=== PATIENT | male | born 1935 | race Two or more races ===

== ENCOUNTER → 2019-05-10 | Outpatient (CLI) | payer MEDICARE, MEDICAID ==
[~2019-05-10] MED LIST: AMLO-150 PO; ASPI-515 PO; ASPI81TA45 PO; ATOR-2 PO; BENA5TAB3 PO; CARV25TA12 PO; CLOP75TA PO; CYCL5TAB PO; DOXA2TAB9 PO; DOXY25TA22 PO; GABA300C10 PO; GUAI100L11 PO; HYDR-3240 PO; INSU100V13 SC; INSU100V5 SQ-INSULIN; INSU100V8 SQ; IRON PO; LOSA50TA14 PO; LOSA50TA2 PO; LOVA10TA PO; METO5VIA30 PO; ONDA4VIA60 PO; PANT40VI PO; SILV25CR30 TP; TRAM-47 PO; TRAM100T13 PO; VITAMIN D
== END | disposition home or self-care (01) ==
LOC: CFH 07:59
PROVIDERS: ATTEND Registered Nurse
DX: I08.0 Rheumatic disorders of both mitral and aortic valves (principal)
CPT/HCPCS: 93306

== ENCOUNTER 2019-09-19 13:49 | Emergency (ER) | payer MEDICARE, MEDICAID ==
[~2019-09-19] VITALS: Ht 162.6 cm; Wt 54.0 kg
[2019-09-19 15:03] VITALS: BP 124/74
== END 2019-09-19 15:05 | disposition home or self-care (01) ==
LOC: ED 15:00
DX: L03.313 Cellulitis of chest wall (principal); R94.31 Abnormal electrocardiogram [ECG] [EKG]; I11.0 Hypertensive heart disease with heart failure; I50.9 Heart failure, unspecified; I25.2 Old myocardial infarction; E11.9 Type 2 diabetes mellitus without complications; Z85.038 Personal history of other malignant neoplasm of large intestine
CPT/HCPCS: 93005; 99283

== ENCOUNTER 2020-01-04 11:46 | Observation (INO) | payer MEDICARE, MEDICAID ==
[~2020-01-04] VITALS: Ht 162.6 cm; Wt 65.5 kg
[2020-01-04] MEDS ORDERED: SODIUM CHLORIDE 0.9% 1,000ML IVBOLUS ONE (12:30)
[2020-01-04] MEDS ORDERED: ONDANSETRON 2MG/ML, 2ML IVPush ONE (12:30)
[2020-01-04] MEDS ORDERED: SODIUM CHLORIDE FLUSH 10ML SYR IVF ONE (12:30)
[2020-01-04] MEDS ORDERED: ONDANSETRON 2MG/ML, 2ML ONE (12:43)
--- NOTE | 2020-01-04 12:51 | NUR ---
PT MEDICATED PER MAR.
[2020-01-04 12:53] LABS: BASOPHILS % (AUTO) 1 % (0-1); EOSINOPHILS % (AUTO) 1 % (1-7); LYMPHOCYTES % (AUTO) 10 % (22-44); MEAN CORPUSCULAR HEMOGLOBIN 33.8 pg (27.5-34.5); MEAN PLATELET VOLUME 7.3 fL (7.4-10.4); MONOCYTES % (AUTO) 5 % (2-9); NEUTROPHILS % (AUTO) 83 % (42-75); PLATELET COUNT 269 x10^3/uL (130-400); RED BLOOD COUNT 3.24 x10^6/uL (4.38-5.82); RED CELL DISTRIBUTION WIDTH 16.1 % (9.4-14.8)
[2020-01-04 12:55] LABS: ALANINE AMINOTRANSFERASE 13 U/L (12-78); ALBUMIN 3.8 g/dL (3.4-5.0); ANION GAP 5 mmol/L (5-15); CALCIUM 8.4 mg/dL (8.5-10.1); CHLORIDE 111 mmol/L (98-107)
[2020-01-04 12:57] LABS: ALKALINE PHOSPHATASE 67 U/L (45-117); BILIRUBIN,TOTAL 0.7 mg/dL (0.2-1.0); CREATININE 1.13 mg/dL (0.7-1.3); TOTAL PROTEIN 6.5 g/dL (6.4-8.2)
--- NOTE | 2020-01-04 12:58 | NUR ---
BREAK RN: PT RESTING IN ROOM. LIGHTS TURNED DOWN FOR COMFORT. VS STABLE. NO ACUTE DISTRESS NOTED. CALL LIGHT IN PLACE. WILL CONTINUE TO MONITOR WHILE PRIMARY RN IS ON BREAK.
[2020-01-04 13:45] LABS: MD SCAN
[2020-01-04] MEDS ORDERED: GADOTERATE 7.5 MMOL/15 ML VIAL ONE (14:36)
[2020-01-04] MEDS ORDERED: ATOR40TA PO (16:53)
[2020-01-04] MEDS ORDERED: DOXA2TAB9 PO (16:54)
[2020-01-04] MEDS ORDERED: APIX2.5T PO (16:54)
[2020-01-04] MEDS ORDERED: GABA-826 PO (16:57)
[2020-01-04] MEDS ORDERED: MELA3TAB31 PO (16:58)
[2020-01-04] MEDS ORDERED: METF850T10 PO (16:59)
[2020-01-04] MEDS ORDERED: PSYL284P7 PO (17:00)
[2020-01-04] MEDS ORDERED: VERA240C2 PO (17:01)
[2020-01-04] MEDS ORDERED: TORS5TAB4 PO (17:01)
[2020-01-04] MEDS ORDERED: CYAN1TAB29 PO (17:02)
[2020-01-04] MEDS ORDERED: ASCO500T8 PO (17:03)
[2020-01-04] MEDS ORDERED: CHOL20008 PO (17:04)
[2020-01-04] MEDS ORDERED: METF500T17 PO (17:05)
[2020-01-04] MEDS ORDERED: ACET-1600 PO (17:06)
--- NOTE | 2020-01-04 17:06 | NUR ---
MED REC COMPLETED. HOSPITAL BED ORDERED FOR COMFORT.
[2020-01-04] MEDS ORDERED: ENALAPRILAT 1.25 MG/ML, 2ML IVPush PRN (17:30)
[2020-01-04] MEDS ORDERED: ONDANSETRON 2MG/ML, 2ML IVPush PRN (17:30)
[2020-01-04] MEDS ORDERED: ACETAMINOPHEN 325 MG TABLET PO PRN (17:30)
--- NOTE | 2020-01-04 18:03 | NUR ---
PHARMACY REQUEST SENT FOR COREG.
[2020-01-04] MEDS: CARVEDILOL 25 MG TABLET PO SCH (18:30)
--- NOTE | 2020-01-04 18:40 | NUR ---
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 ORTHOSTATIC VITALS DONE. PT HAD NO C/O DIZZINESS BUT SYSTOLIC BP DROPPED 28 POINTS FROM SITTING TO STANDING.
[2020-01-04 19:02] LABS: MICROSCOPIC AUTO
[2020-01-04] MEDS ORDERED: GABAPENTIN 300 MG CAPSULE ONE (20:17)
[2020-01-04] MEDS ORDERED: ATORVASTATIN 40 MG TABLET ONE (20:17)
[2020-01-04] MEDS ORDERED: APIXABAN 5 MG TABLET ONE (20:17)
[2020-01-04] MEDS ORDERED: metFORMIN 500 MG TABLET ONE (20:17)
[2020-01-04] MEDS: TORSEMIDE MC SCH (20:41)
[2020-01-04] MEDS ORDERED: GABAPENTIN 300 MG CAPSULE PO SCH (21:00)
[2020-01-04] MEDS ORDERED: MELATONIN 3 MG TABLET PO SCH (21:00)
[2020-01-04] MEDS ORDERED: ATORVASTATIN 40 MG TABLET PO SCH (21:00)
[2020-01-04] MEDS ORDERED: DOXAZOSIN 2MG TABLET PO SCH (21:00)
[2020-01-04] MEDS: metFORMIN 500 MG TABLET PO SCH (21:03)
[2020-01-04] MEDS: APIXABAN 2.5 MG TABLET PO SCH (21:04)
[2020-01-04 21:30] VITALS: BP 125/40
[2020-01-05 01:06] VITALS: BP 142/52
[2020-01-05] MEDS: TORSEMIDE MC SCH (04:59)
[2020-01-05 05:29] VITALS: BP 126/62
[2020-01-05] MEDS: CARVEDILOL 25 MG TABLET PO SCH (05:30)
[2020-01-05 05:51] LABS: BASOPHILS % (AUTO) 1 % (0-1); EOSINOPHILS % (AUTO) 1 % (1-7); LYMPHOCYTES % (AUTO) 14 % (22-44); MEAN CORPUSCULAR HEMOGLOBIN 34.6 pg (27.5-34.5); MEAN CORPUSCULAR HGB CONC 34.4 g/dL (33.2-36.2); MEAN PLATELET VOLUME 7.3 fL (7.4-10.4); MONOCYTES % (AUTO) 13 % (2-9); NEUTROPHILS % (AUTO) 70 % (42-75); PLATELET COUNT 245 x10^3/uL (130-400); RED BLOOD COUNT 2.95 x10^6/uL (4.38-5.82); RED CELL DISTRIBUTION WIDTH 15.9 % (9.4-14.8)
[2020-01-05 06:05] LABS: ANION GAP 6 mmol/L (5-15); CALCIUM 8.4 mg/dL (8.5-10.1); CHLORIDE 115 mmol/L (98-107)
[2020-01-05 06:40] VITALS: BP 136/58
[2020-01-05 06:42] LABS: MD MORPH REVIEW ONLY
[2020-01-05 06:43] LABS: ANISOCYTOSIS 1+
[2020-01-05 06:44] LABS: <PLATELET ESTIMATE> ADEQUATE; <PLT MORPHOLOGY> NORMAL PLT MORPH; OVALOCYTES 1+
[2020-01-05] MEDS: APIXABAN 2.5 MG TABLET PO SCH (08:24)
[2020-01-05] MEDS: metFORMIN 500 MG TABLET PO SCH (08:24)
[2020-01-05] MEDS ORDERED: LOSARTAN 100 MG TAB PO SCH (09:00)
[2020-01-05] MEDS ORDERED: TORSEMIDE PO SCH (09:00)
[2020-01-05] MEDS ORDERED: ASCORBIC ACID 500 MG TABLET PO SCH (09:00)
[2020-01-05] MEDS ORDERED: GABAPENTIN 100 MG CAPSULE PO SCH (09:00)
[2020-01-05 11:23] LABS: TROPONIN I 0.024 ng/mL (0.000-0.045)
[2020-01-05 13:12] VITALS: BP 159/58
== END 2020-01-05 16:00 | disposition home or self-care (01) ==
LOC: ED 12:25 → EDIP 12:53 → INTOOBSV 12:53 → SUATTDRO 15:56 → 5SO 01-05 00:52 → DCLOUNGE 01-05 15:51
PROVIDERS: ADMIT Internal Medicine; ATTEND Hospitalist
DX: R42 Dizziness and giddiness (principal); R11.2 Nausea with vomiting, unspecified; I25.10 Atherosclerotic heart disease of native coronary artery without angina pectoris; I11.0 Hypertensive heart disease with heart failure; I50.32 Chronic diastolic (congestive) heart failure; E11.9 Type 2 diabetes mellitus without complications; I44.2 Atrioventricular block, complete; I25.2 Old myocardial infarction; I35.2 Nonrheumatic aortic (valve) stenosis with insufficiency; D68.69 Other thrombophilia; I27.20 Pulmonary hypertension, unspecified; Z95.0 Presence of cardiac pacemaker; Z79.01 Long term (current) use of anticoagulants; Z95.5 Presence of coronary angioplasty implant and graft; Z90.49 Acquired absence of other specified parts of digestive tract; Z85.038 Personal history of other malignant neoplasm of large intestine; Z79.899 Other long term (current) drug therapy; Z79.4 Long term (current) use of insulin; Z79.82 Long term (current) use of aspirin
CPT/HCPCS: 36415; 70553; 74018; 80048; 80053; 81001; 82607; 83605; 83735; 84100; 84443; 84484; 85025; 93005; 93306; 96374; 99285; A9575; G0378; J2405; J7030

== ENCOUNTER 2020-05-06 09:47 | Emergency (ER) | payer MEDICARE, MEDICAID ==
[~2020-05-06] VITALS: Ht 162.6 cm; Wt 62.9 kg
[~2020-05-06 09:47] MED LIST changes: +ACET-1600 PO; +APIX2.5T PO; +ASCO500T8 PO; -ASPI-515 PO; +ASPI-963 PO; +ATOR40TA PO; +CHOL20008 PO; +CYAN1TAB29 PO; +GABA-826 PO; +HYDR-1067 PO; -HYDR-3240 PO; +MELA3TAB31 PO; +METF500T17 PO; +METF850T10 PO; +PSYL284P7 PO; +TORS5TAB4 PO; +VERA240C2 PO
[2020-05-06 10:11] VITALS: BP 140/43
[2020-05-06] MEDS ORDERED: PROPARACAINE OPHTH 0.5%, 15ML EACHEYE ONE (10:30)
[2020-05-06] MEDS ORDERED: FLUORESCEIN/BENOXINATE 5 ML DROPS OP ONE (10:30)
[2020-05-06] MEDS ORDERED: FLUORESCEIN OPHTHALMIC 1 MG STRIP ONE (10:35)
[2020-05-06] MEDS ORDERED: PROPARACAINE OPHTH 0.5%, 15ML ONE (10:35)
--- NOTE | 2020-05-06 10:38 | NUR ---
ATTEMPTED TO ASSSESS PATIENTS VISUAL ACUITY BUT PATIENT WAS UNABLE TO SEE THE [facility] CHART OR IDENTIFY ANY LETTERS ON CHART.
== END 2020-05-06 11:17 | disposition home or self-care (01) ==
LOC: ED 11:05
DX: H10.13 Acute atopic conjunctivitis, bilateral (principal); I11.0 Hypertensive heart disease with heart failure; I50.9 Heart failure, unspecified; I25.2 Old myocardial infarction; E11.9 Type 2 diabetes mellitus without complications; Z87.891 Personal history of nicotine dependence; Z85.038 Personal history of other malignant neoplasm of large intestine
CPT/HCPCS: 99283